=== PATIENT | female | born 1970 | race Caucasian/White ===

== ENCOUNTER 2019-06-08 14:21 | Outpatient (RCR) | payer OTHER, SELFPAY | END 2019-06-08 23:59 | disposition home or self-care (01) | LOC: ANHAUDIO 14:21 | DX: Z46.1 Encounter for fitting and adjustment of hearing aid (principal) | CPT/HCPCS: V5160; V5261 ==

== ENCOUNTER 2023-05-07 13:02 | Outpatient (CLI) | payer MEDICAID, SELFPAY | END 2023-05-07 13:03 | disposition home or self-care (01) | LOC: ANHAUDIO 13:03 | PROVIDERS: Visit Provider Otolaryngology | DX: H90.3 Sensorineural hearing loss, bilateral (principal) | CPT/HCPCS: 92557; 92567 ==